=== PATIENT | male | born 1990 | race African-American/Black ===

== ENCOUNTER 2016-05-25 13:25 | Emergency (ER) | payer MEDICAID ==
[~2016-05-25] VITALS: Ht 167.6 cm; Wt 79.5 kg
[~2016-05-25 13:25] MED LIST: AMOXICILLIN 50500 MG PO; CLEOCIN HC150 MG/CAP PO; IBUPROFEN800 MG PO; MOTRIN 800800 MG/TAB PO; NO HOME MEDICATIONS; NORCO 325 MG-51 TAB PO; NORCO 325 MG-7.1 TAB PO; PEN-VEE K250 MG PO; PEN-VEE K500 MG PO; ULTRAM 50MG TAB50 MG PO
[2016-05-25 13:26] VITALS: BP 143/97; TEMP 100.2
[2016-05-25] MEDS ORDERED: NORCO 325 MG-51 TAB PO (13:58)
[2016-05-25] MEDS ORDERED: AMOXICILLIN 50500 MG PO (13:58)
[2016-05-25 14:04] VITALS: PULSE 108
== END 2016-05-25 14:05 | disposition home or self-care (01) ==
LOC: COL.ER 13:25
DX: K08.89 Other specified disorders of teeth and supporting structures (principal); G89.18 Other acute postprocedural pain; F17.210 Nicotine dependence, cigarettes, uncomplicated; K08.409 Partial loss of teeth, unspecified cause, unspecified class

== ENCOUNTER 2016-08-22 00:29 | Emergency (ER) | payer MEDICAID ==
[~2016-08-22] VITALS: Ht 167.6 cm; Wt 81.8 kg
[2016-08-22 00:43] VITALS: TEMP 97.5
[2016-08-22] MEDS ORDERED: AMOXICILLIN 50500 MG PO (01:33)
[2016-08-22] MEDS ORDERED: NORCO 325 MG-7.1 TAB PO (01:33)
[2016-08-22 01:47] VITALS: BP 151/85; PULSE 100
== END 2016-08-22 01:47 | disposition home or self-care (01) ==
LOC: COL.ER 00:29
DX: K04.7 Periapical abscess without sinus (principal); K08.89 Other specified disorders of teeth and supporting structures; F17.210 Nicotine dependence, cigarettes, uncomplicated; R59.0 Localized enlarged lymph nodes

== ENCOUNTER 2016-09-04 12:34 | Emergency (ER) | payer MEDICAID ==
[~2016-09-04] VITALS: Ht 167.6 cm; Wt 81.8 kg
[2016-09-04 12:38] VITALS: BP 109/72; TEMP 99.1
[2016-09-04] MEDS ORDERED: NORCO 325 MG-51 TAB PO (14:00)
[2016-09-04 14:22] VITALS: PULSE 115
== END 2016-09-04 14:23 | disposition home or self-care (01) ==
LOC: COL.ER 12:34
DX: S93.601A Unspecified sprain of right foot, initial encounter (principal); S80.811A Abrasion, right lower leg, initial encounter; F17.210 Nicotine dependence, cigarettes, uncomplicated; V19.9XXA Pedal cyclist (driver) (passenger) injured in unspecified traffic accident, initial encounter
CPT/HCPCS: J1885

== ENCOUNTER 2016-09-08 22:35 | Emergency (ER) | payer MEDICAID ==
[~2016-09-08] VITALS: Ht 167.6 cm; Wt 81.8 kg
[2016-09-08 22:37] VITALS: BP 133/83; TEMP 98.1
[2016-09-08 23:08] VITALS: PULSE 94
== END 2016-09-08 23:08 | disposition home or self-care (01) ==
LOC: COL.ER 22:35
DX: S90.31XA Contusion of right foot, initial encounter (principal); K75.9 Inflammatory liver disease, unspecified; F17.210 Nicotine dependence, cigarettes, uncomplicated; Z98.890 Other specified postprocedural states; V18.4XXA Pedal cycle driver injured in noncollision transport accident in traffic accident, initial encounter; Y93.I9 Activity, other involving external motion; Y92.410 Unspecified street and highway as the place of occurrence of the external cause

== ENCOUNTER 2017-11-13 20:47 | Emergency (ER) | payer SELFPAY ==
[~2017-11-13] VITALS: Ht 167.6 cm; Wt 81.8 kg
[2017-11-13 21:01] VITALS: BP 139/85; TEMP 98
[2017-11-13] MEDS ORDERED: NORCO 325 MG-51 TAB PO (22:51)
[2017-11-13] MEDS ORDERED: AMOXICILLIN 8751 TAB PO (22:51)
[2017-11-13 23:07] VITALS: PULSE 88
== END 2017-11-13 23:08 | disposition home or self-care (01) ==
LOC: COL.ER 20:47
DX: K08.89 Other specified disorders of teeth and supporting structures (principal); F17.210 Nicotine dependence, cigarettes, uncomplicated

== ENCOUNTER 2018-01-27 06:28 | Emergency (ER) | payer SELFPAY ==
[~2018-01-27] VITALS: Ht 167.6 cm; Wt 81.8 kg
[~2018-01-27 06:28] MED LIST changes: +AMOXICILLIN 8751 TAB PO
[2018-01-27 06:31] VITALS: BP 143/89; TEMP 97.8
[2018-01-27] MEDS ORDERED: AMOXICILLIN 50500 MG PO (06:43)
[2018-01-27 06:57] VITALS: PULSE 82
== END 2018-01-27 06:57 | disposition home or self-care (01) ==
LOC: COL.ER 06:28
DX: K02.9 Dental caries, unspecified (principal)

== ENCOUNTER 2018-02-20 03:21 | Emergency (ER) | payer SELFPAY ==
[~2018-02-20] VITALS: Ht 167.6 cm; Wt 81.8 kg
[2018-02-20 03:28] VITALS: BP 118/74; TEMP 98.5
[2018-02-20] MEDS ORDERED: CLEOCIN HCL300 MG PO (03:59)
[2018-02-20] MEDS ORDERED: NORCO 325 MG-51 TAB PO (03:59)
[2018-02-20 04:08] VITALS: PULSE 105
== END 2018-02-20 04:09 | disposition home or self-care (01) ==
LOC: COL.ER 03:21
DX: K02.9 Dental caries, unspecified (principal); F17.210 Nicotine dependence, cigarettes, uncomplicated
CPT/HCPCS: J1885

== ENCOUNTER 2018-04-15 20:47 | Emergency (ER) | payer SELFPAY ==
[~2018-04-15] VITALS: Ht 167.6 cm; Wt 81.8 kg
[~2018-04-15 20:47] MED LIST changes: +CLEOCIN HCL300 MG PO
[2018-04-15 20:50] VITALS: BP 137/85; TEMP 98.7
[2018-04-15] MEDS ORDERED: AMOXICILLIN875 MG PO (21:31)
[2018-04-15 21:35] VITALS: PULSE 98
== END 2018-04-15 21:36 | disposition home or self-care (01) ==
LOC: COL.ER 20:47
DX: K08.89 Other specified disorders of teeth and supporting structures (principal)

== ENCOUNTER 2018-07-12 21:13 | Emergency (ER) | payer SELFPAY ==
[~2018-07-12] VITALS: Ht 167.6 cm; Wt 81.8 kg
[~2018-07-12 21:13] MED LIST changes: +AMOXICILLIN875 MG PO
[2018-07-12 21:19] VITALS: BP 133/79; TEMP 98.3
[2018-07-12 22:05] VITALS: PULSE 101
== END 2018-07-12 22:09 | disposition home or self-care (01) ==
LOC: COL.ER 21:13
DX: S60.032A Contusion of left middle finger without damage to nail, initial encounter (principal); V19.9XXA Pedal cyclist (driver) (passenger) injured in unspecified traffic accident, initial encounter

== ENCOUNTER 2018-07-21 22:55 | Emergency (ER) | payer SELFPAY ==
[~2018-07-21] VITALS: Ht 167.6 cm; Wt 77.3 kg
[2018-07-21 23:14] VITALS: BP 128/81; TEMP 97
[2018-07-22 00:38] LABS: BASO % 0.6 % (0.0-2.0); EOS # 0.4 (0.0-0.7); EOS % 7.3 % (0-4.0); HEMATOCRIT 45.7 % (42.0-52.0); HEMOGLOBIN 15.2 g/dl (13.5-18.0); LYMPH # 2.2 (1.2-3.4); LYMPH % 44.8 % (20.0-51.0); MEAN CELL VOLUME 91 fl (80.0-100.0); MEAN CORPUSCULAR HEMOGLOBIN 30 pg (27.0-31.0); MEAN CORPUSCULAR HGB CONC 33 g/dl (33.0-37.0); MONO # 0.3 (0.1-0.6); MONO % 6.1 % (1.7-9.3); PLATELET COUNT 321 K/mm3 (130-400); RED BLOOD COUNT 5.03 M/mm3 (4.20-5.60); REDCELL DISTRIBUTION WIDTH-CV 12.7 % (11.5-14.5)
[2018-07-22 00:53] LABS: ALANINE AMINOTRANSFERASE 22 U/L (21-72); ALKALINE PHOSPHATASE 64 U/L (50-136); ANION GAP 11 mmol/L (7-16); AST,SGOT 35 U/L (15-37); BILIRUBIN,TOTAL 0.4 mg/dL (0.0-1.0); BLOOD UREA NITROGEN 7 mg/dL (9-20); CALCIUM 9.4 mg/dL (8.4-10.2); CARBON DIOXIDE 29 mmol/L (22-30); CHLORIDE 102 mmol/L (98-107); CREATININE, serum 1.07 (0.66-1.25); GLUCOSE 66 mg/dL (74-106); POTASSIUM 3.9 mmol/L (3.4-5.0); SODIUM 141 mmol/L (137-145); TOTAL PROTEIN 7.2 gm/dL (6.4-8.2)
[2018-07-22 00:54] LABS: C-REACTIVE PROTEIN < 0.5 mg/dL (0.0-0.9)
[2018-07-22 01:07] LABS: TROPONIN-I < 0.012 ng/mL (0.000-0.035)
[2018-07-22 01:43] LABS: HIV 1/2 Antibodies Non-Reactive; HIV-1p24 Antigen Non-Reactive
[2018-07-22 01:55] VITALS: PULSE 86
== END 2018-07-22 01:55 | disposition home or self-care (01) ==
LOC: COL.ER 22:55
PROVIDERS: Emergency Medicine
DX: R07.89 Other chest pain (principal)
CPT/HCPCS: J1200; J1885; J2550

== ENCOUNTER 2018-08-06 13:45 | Emergency (ER) | payer MEDICAID ==
[~2018-08-06] VITALS: Ht 167.6 cm; Wt 77.3 kg
[2018-08-06 13:53] VITALS: TEMP 96.8
[2018-08-06 15:20] VITALS: BP 98/73; PULSE 81
== END 2018-08-06 15:20 | disposition home or self-care (01) ==
LOC: COL.ER 13:45
DX: G43.909 Migraine, unspecified, not intractable, without status migrainosus (principal)
CPT/HCPCS: J1200; J1885; J2765

== ENCOUNTER 2018-08-11 22:01 | Emergency (ER) | payer MEDICAID ==
[~2018-08-11] VITALS: Ht 167.6 cm; Wt 77.3 kg
[2018-08-11 22:11] VITALS: TEMP 98
[2018-08-11] MEDS ORDERED: PHENERGAN 25 TA25 MG PO (22:39)
[2018-08-11 23:44] VITALS: BP 113/77; PULSE 93
== END 2018-08-11 23:44 | disposition home or self-care (01) ==
LOC: COL.ER 22:01
DX: R51 Headache (principal); F17.210 Nicotine dependence, cigarettes, uncomplicated
CPT/HCPCS: J1200; J1885; J2550

== ENCOUNTER 2018-09-03 07:29 | Emergency (ER) | payer SELFPAY ==
[~2018-09-03] VITALS: Ht 167.6 cm; Wt 79.5 kg
[~2018-09-03 07:29] MED LIST changes: +PHENERGAN 25 TA25 MG PO
[2018-09-03 07:32] VITALS: BP 138/95; TEMP 97.7
[2018-09-03] MEDS ORDERED: MOTRIN 800800 MG/TAB PO (07:47)
[2018-09-03] MEDS ORDERED: PROMETHAZINE12.5 M5 PO (08:47)
[2018-09-03] MEDS ORDERED: NORCO 325 MG-51 TAB PO (09:26)
[2018-09-03 09:42] VITALS: PULSE 103
== END 2018-09-03 09:42 | disposition home or self-care (01) ==
LOC: COL.ER 07:29
DX: G43.909 Migraine, unspecified, not intractable, without status migrainosus (principal)
CPT/HCPCS: J1200; J1885; J2550

== ENCOUNTER 2018-09-28 16:05 | Emergency (ER) | payer SELFPAY ==
[~2018-09-28] VITALS: Ht 167.6 cm; Wt 72.7 kg
[~2018-09-28 16:05] MED LIST changes: +PROMETHAZINE12.5 M5 PO
[2018-09-28 16:19] VITALS: BP 125/79; TEMP 98.2
[2018-09-28 18:08] VITALS: PULSE 80
== END 2018-09-28 18:08 | disposition home or self-care (01) ==
LOC: COL.ER 16:05
DX: R51 Headache (principal); Z79.1 Long term (current) use of non-steroidal anti-inflammatories (NSAID)
CPT/HCPCS: J1885; J2550

== ENCOUNTER 2018-11-30 20:20 | Emergency (ER) | payer SELFPAY ==
[~2018-11-30] VITALS: Ht 167.6 cm; Wt 77.3 kg
[2018-11-30 20:33] VITALS: BP 140/86; TEMP 98
[2018-11-30] MEDS ORDERED: NORCO 325 MG-51 TAB PO (21:50)
[2018-11-30] MEDS ORDERED: MEDROL 4MG DOSPA4 MG PO (21:50)
[2018-11-30 22:04] VITALS: PULSE 98
== END 2018-11-30 22:04 | disposition home or self-care (01) ==
LOC: COL.ER 20:20
DX: M25.562 Pain in left knee (principal); F17.210 Nicotine dependence, cigarettes, uncomplicated
CPT/HCPCS: J7512; L1846

== ENCOUNTER 2018-12-04 18:33 | Emergency (ER) | payer SELFPAY ==
[~2018-12-04] VITALS: Ht 167.6 cm; Wt 79.1 kg
[~2018-12-04 18:33] MED LIST changes: +MEDROL 4MG DOSPA4 MG PO
[2018-12-04 18:45] VITALS: BP 120/83; TEMP 98.4
[2018-12-04 19:30] VITALS: PULSE 80
== END 2018-12-04 19:30 | disposition home or self-care (01) ==
LOC: COL.ER 18:33
DX: M70.42 Prepatellar bursitis, left knee (principal); Z79.52 Long term (current) use of systemic steroids

== ENCOUNTER 2018-12-07 19:52 | Emergency (ER) | payer SELFPAY ==
[~2018-12-07] VITALS: Ht 167.6 cm; Wt 81.8 kg
[2018-12-07 19:57] VITALS: BP 127/84; PULSE 98; TEMP 96.9
== END 2018-12-07 20:30 | disposition home or self-care (01) ==
LOC: COL.ER 19:52
DX: G89.29 Other chronic pain (principal); M25.562 Pain in left knee; Z79.52 Long term (current) use of systemic steroids

== ENCOUNTER 2018-12-10 19:28 | Emergency (ER) | payer SELFPAY ==
[~2018-12-10] VITALS: Ht 167.6 cm; Wt 81.8 kg
[2018-12-10 19:35] VITALS: BP 130/82; TEMP 98.2
[2018-12-10 20:36] VITALS: PULSE 90
== END 2018-12-10 20:38 | disposition home or self-care (01) ==
LOC: COL.ER 19:28
DX: M25.562 Pain in left knee (principal); F17.210 Nicotine dependence, cigarettes, uncomplicated

== ENCOUNTER 2019-01-05 23:03 | Emergency (ER) | payer SELFPAY ==
[~2019-01-05] VITALS: Ht 167.6 cm; Wt 63.6 kg
[2019-01-05 23:11] VITALS: BP 137/72; PULSE 80; TEMP 98
== END 2019-01-06 00:30 | disposition home or self-care (01) ==
LOC: COL.ER 23:03
DX: M25.562 Pain in left knee (principal); G89.29 Other chronic pain; F17.210 Nicotine dependence, cigarettes, uncomplicated